=== PATIENT | male | born 2000 | race Caucasian/White ===

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

== ENCOUNTER 2019-11-15 10:14 | Emergency (ER) | payer OTHER | END 2019-11-15 11:25 | disposition home or self-care (01) | LOC: ERS 10:14 | DX: Z20.828 Contact with and (suspected) exposure to other viral communicable diseases (principal) | CPT/HCPCS: 87635; 99283; U0003 ==